=== PATIENT | female | born 1995 | race Caucasian/White ===

== ENCOUNTER 2017-06-24 16:10 | Inpatient (IN) | payer MEDICAID ==
[~2017-06-24] VITALS: Ht 162.6 cm; Wt 89.5 kg
[2017-07-01] MEDS ORDERED: PRENATAL MVI PO (17:32)
[2017-07-06 20:00] VITALS: BP 135/90; PULSE 71; TEMP 97.5
[2017-07-06 21:00] VITALS: BP 134/77; PULSE 63
[2017-07-06 21:30] VITALS: BP 128/73; PULSE 68
[2017-07-06 22:00] VITALS: BP 124/67; PULSE 86
[2017-07-06 22:30] VITALS: BP 126/83; PULSE 88
[2017-07-06 22:36] VITALS: TEMP 97.8
[2017-07-06 22:54] LABS: BASO % 0.3 % (0.0-2.0); EOS # 0.1 (0.0-0.7); EOS % 0.4 % (0-4.0); GRAN # 11.4 (1.4-6.5); GRAN % 77.1 % (42.2-75.2); HEMATOCRIT 35.8 % (37.0-47.0); HEMOGLOBIN 12.4 g/dl (12.5-16.0); LYMPH # 2.4 (1.2-3.4); LYMPH % 16.4 % (20.0-51.0); MEAN CELL VOLUME 84 fl (80.0-100.0); MEAN CORPUSCULAR HEMOGLOBIN 29 pg (27.0-31.0); MEAN CORPUSCULAR HGB CONC 35 g/dl (33.0-37.0); MEAN PLATELET VOLUME 10.7 fl (7.4-10.4); MONO # 0.8 (0.1-0.6); MONO % 5.5 % (1.7-9.3); PLATELET COUNT 251 K/mm3 (130-400); RED BLOOD COUNT 4.28 M/mm3 (4.10-5.30); REDCELL DISTRIBUTION WIDTH-CV 13.3 % (11.5-14.5)
[2017-07-07] VITALS (62 sets, daily range): BP systolic 110–182; BP diastolic 56–103; PULSE 53–108; TEMP 97.3–98.9
[2017-07-08 00:25] VITALS: BP 132/82; PULSE 80; TEMP 98.8
[2017-07-08 04:00] VITALS: BP 112/54; PULSE 79; TEMP 98.8
[2017-07-08 06:50] VITALS: BP 121/63; PULSE 71; TEMP 98.5
[2017-07-08 12:00] VITALS: BP 104/52; PULSE 77; TEMP 98.3
[2017-07-08 16:41] VITALS: BP 124/72; PULSE 82; TEMP 97.4
[2017-07-08 20:55] VITALS: BP 129/77; PULSE 79; TEMP 98.2
[2017-07-09] MEDS ORDERED: IBU800 M1 PO (08:31)
[2017-07-09 09:44] VITALS: BP 128/74; PULSE 78; TEMP 98.1
== END 2017-07-09 12:10 | disposition home or self-care (01) | DRG 775 ==
LOC: LDR → OB 07-06 19:53
PROVIDERS: Obstetrics & Gynecology
PROC: 10E0XZZ Delivery of Products of Conception, External Approach (ICD-10-PCS; principal; 2017-07-07)
PROC: 0HQ9XZZ Repair Perineum Skin, External Approach (ICD-10-PCS; 2017-07-07)
PROC: 3E033VJ Introduction of Other Hormone into Peripheral Vein, Percutaneous Approach (ICD-10-PCS; 2017-07-07)
DX: O48.0 Post-term pregnancy (principal); O69.81X0 Labor and delivery complicated by cord around neck, without compression, not applicable or unspecified; O77.0 Labor and delivery complicated by meconium in amniotic fluid; O70.0 First degree perineal laceration during delivery; Z3A.40 40 weeks gestation of pregnancy; Z37.0 Single live birth
CPT/HCPCS: J2400; J2590; J2795; J7120

== ENCOUNTER 2017-07-01 17:13 | Outpatient (CLI) | payer MEDICAID ==
[~2017-07-01] VITALS: Ht 162.6 cm; Wt 89.1 kg
[2017-07-01 17:28] VITALS: BP 134/87; PULSE 87; TEMP 98.5
[2017-07-01] MEDS ORDERED: PRENATAL MVI PO (17:32)
[2017-07-01 18:00] VITALS: BP 134/87; PULSE 87; TEMP 98
== END 2017-07-01 18:15 | disposition home or self-care (01) ==
LOC: LDRO 17:13
DX: O99.89 Other specified diseases and conditions complicating pregnancy, childbirth and the puerperium (principal); M54.5 Low back pain; Z3A.39 39 weeks gestation of pregnancy